=== PATIENT | female | born 1950 | race Caucasian/White ===

== ENCOUNTER → 2019-05-21 | Outpatient (CLI) | payer OTHER ==
[~2019-05-21] MED LIST: COZAAR 50 MG TA50 M1 PO; EDARBYCLOR 40-1 EAC1 PO; ELIQUIS5 MG PO; LEVOTHYROXINE0.05 MG PO; LEVOTHYROXINE500 MCG PO; LIPITOR40 MG PO; NORVASC5 MG PO; OCUVITE TABLET1 EAC1 PO; OMEPRAZOLE20 M2 PO; PRADAXA150 MG PO
== END ==
LOC: ULTRA 13:02
DX: M79.604 Pain in right leg (principal); M79.89 Other specified soft tissue disorders; Z88.8 Allergy status to other drugs, medicaments and biological substances; Z88.0 Allergy status to penicillin

== ENCOUNTER → 2019-11-27 | Outpatient (CLI) | payer OTHER | LOC: SJCVC 14:50 | DX: I25.10 Atherosclerotic heart disease of native coronary artery without angina pectoris (principal); I49.9 Cardiac arrhythmia, unspecified; E78.00 Pure hypercholesterolemia, unspecified; I35.1 Nonrheumatic aortic (valve) insufficiency; I10 Essential (primary) hypertension; D68.59 Other primary thrombophilia; K21.9 Gastro-esophageal reflux disease without esophagitis; R60.9 Edema, unspecified; Z79.899 Other long term (current) drug therapy; Z79.82 Long term (current) use of aspirin; Z82.49 Family history of ischemic heart disease and other diseases of the circulatory system; Z86.718 Personal history of other venous thrombosis and embolism ==